=== PATIENT | male | born 1995 | race Caucasian/White ===

== ENCOUNTER → 2016-10-27 | Outpatient (CLI) | payer SELFPAY ==
[~2016-10-27] MED LIST: ALBU8.5H4 IH; CYCL10TA9 PO; HYDR-1231 PO; NAPR-243 PO; SULF1TAB35 PO; TRAM50TA2 PO; TRM50T PO
== END ==
LOC: RAD 14:02
PROVIDERS: ATTEND Family Medicine
DX: S60.222A Contusion of left hand, initial encounter (principal); X58.XXXA Exposure to other specified factors, initial encounter; Y99.8 Other external cause status